=== PATIENT | female | born 1935 | race Asian ===

== ENCOUNTER 2022-04-24 11:01 | Emergency (ER) | payer MEDICARE, OTHER ==
[~2022-04-24] VITALS: Ht 157.5 cm; Wt 49.9 kg
[~2022-04-24 11:01] MED LIST: SYN50 PO
[2022-04-24 11:05] VITALS: BP_SYST 150
--- NOTE | 2022-04-24 11:12 | NUR ---
patient to [facility] for left sided hip pain. no trauma and unprovoked. patient has history of dementia and mumbles "I am done now". patient is a poor historian. waiting to see
--- NOTE | 2022-04-24 13:21 | NUR ---
patient condition goes unchanged, vss, pain in left hip, urinated on bed pain at this time. waiting to see
--- NOTE | 2022-04-24 14:03 | NUR ---
DR. PRADO, [place] DOC, CALLED BACK TO SPEAK TO DR. CALDERA REGARDING PT STATUS.
[2022-04-24 14:51] LABS: BASOPHILS # (AUTO) 0.1 K/uL (0.0-0.2); BASOPHILS % (AUTO) 0.4 % (0.0-2.0); HEMATOCRIT 37.4 % (36-48); HEMOGLOBIN 12.4 g/dL (12.0-16.0); LYMPHOCYTES # (AUTO) 0.6 K/uL (1.0-5.5); LYMPHOCYTES % (AUTO) 4.8 % (20.5-51.5); MEAN CORPUSCULAR HEMOGLOBIN 31 pg (27-31); MEAN CORPUSCULAR HGB CONC 33 % (32-36); MEAN CORPUSCULAR VOLUME 95 fL (79.0-98.0); MONOCYTES # (AUTO) 0.5 K/uL (0.0-1.0); MONOCYTES % (AUTO) 3.7 % (1.7-9.3); NEUTROPHILS # (AUTO) 11.6 K/uL (1.8-7.7); NEUTROPHILS % (AUTO) 91.1 % (40.0-70.0); PLATELET COUNT (AUTO) 188 K/uL (130-430); RED BLOOD CELL COUNT(AUTO) 3.94 MIL/uL (4.2-6.2); RED CELL DISTRIBUTION WIDTH 14.4 % (9.0-15.0); WHITE BLOOD COUNT (AUTO) 12.8 K/uL (4.8-10.8)
--- NOTE | 2022-04-24 15:03 | NUR ---
patient condition goes unchanged, denies pain, daughter at bedside left to notify nursing faciity of fracture and patient being transferred to [facility] on the monitor, labs drawn, patient needs close monitoring due to continuously trying to climb out of bed, charge nurse notified. family left at this time, comfort and safety implemented and maintained.
[2022-04-24 15:07] LABS: ANION GAP 17 (5-15); CALCIUM 9.2 mg/dL (8.4-11.0); CHLORIDE 98 mmol/L (98-107); CREATININE 1.42 mg/dL (0.55-1.30); GLUCOSE 150 mg/dL (70-99); POTASSIUM 3.8 mmol/L (3.5-5.1); UREA NITROGEN, BLOOD 27 mg/dL (8-21)
--- NOTE | 2022-04-24 15:10 | NUR ---
patient to ct scan in stable condition
[2022-04-24 15:15] LABS: ALANINE AMINOTRANSFERASE 22 U/L (12-78); ALBUMIN 4.2 g/dL (3.4-4.8); ASPARTATE AMINOTRANSFERASE 22 U/L (10-37); TOTAL BILIRUBIN 0.6 mg/dL (0.0-1.0)
[2022-04-24 15:58] LABS: INR 0.9 (0.8-1.2); PROTHROMBIN TIME 9.5 SECS (9.5-12.5)
--- NOTE | 2022-04-24 16:48 | NUR ---
TRANSFER INFO [facility], P [phone] BLS ETA [id number] SPOKE TO VIDHI WALLIS [facility] RN
--- NOTE | 2022-04-24 17:01 | NUR ---
patient urinated on bed rawls at this time, patient able to lift up to place self on bed rawls, rusty care completed, neice at bedside and patient diaper applied, patient repositioned in bed to protect from skin break down, st on the monitor, waiting for [facility] transport. denies pain. patient less anxious with neice at bedside and not trying to climb out of bed. patient continuously tries to climb out of bed without family at bedside. needs one on one to avoid falling if family not at bedside. patient does not follow verbal commands and very demeted. needs frequent re orienting. patient's urine to lab at this time.
[2022-04-24 17:40] LABS: BILIRUBIN,URINE NEGATIVE (NEGATIVE); CLARITY/URINE SL CLOUDY (CLEAR); COLOR,URINE YELLOW (YELLOW); GLUCOSE,URINE NEGATIVE (NEGATIVE); KETONES,URINE NEGATIVE (NEGATIVE); LEUKOCYTE ESTERASE ,URINE 1+ (NEGATIVE); NITRITE, URINE POSITIVE (NEGATIVE); PROTEIN URINE TRACE (NEGATIVE); UROBILINOGEN,URINE 0.2 (0.2-1.0)
[2022-04-24 17:51] LABS: BLOOD, URINE TRACE (NEGATIVE)
[2022-04-24 17:55] LABS: BACTERIA,URINE MANY /HPF (None Seen); WBC,URINE 20-50 /HPF (0-3)
[2022-04-24 17:56] LABS: HYALINE CASTS, URINE 0-10 /LPF (None Seen); MUCUS,URINE None Seen /LPF (None Seen)
--- NOTE | 2022-04-24 18:18 | NUR ---
waiting for transport to [place] at this time, laboratory secretary kera called for follow up
[2022-04-24 18:42] VITALS: BP_SYST 164
--- NOTE | 2022-04-24 18:44 | NUR ---
Report to Yolanda charge nurse in ED at [facility] at this time
== END 2022-04-24 18:45 | disposition short-term general hospital (02) ==
LOC: SED 11:01
DX: S72.002A Fracture of unspecified part of neck of left femur, initial encounter for closed fracture (principal); Z86.59 Personal history of other mental and behavioral disorders; Z88.7 Allergy status to serum and vaccine; Z79.899 Other long term (current) drug therapy; Z20.822 Contact with and (suspected) exposure to COVID-19; W13.3XXA Fall through floor, initial encounter; Y93.89 Activity, other specified; Y92.89 Other specified places as the place of occurrence of the external cause; Y99.8 Other external cause status
CPT/HCPCS: 36415; 70450-TC; 71045; 72170-TC; 73502; 76376; 80053; 81000; 83880; 84484; 85025; 85610-TC; 85730-TC; 87086; 93005; 99285